=== PATIENT | female | born 1960 | race Caucasian/White ===

== ENCOUNTER → 2017-04-23 | Outpatient (CLI) | payer OTHER ==
[~2017-04-23] MED LIST: COUMADIN PO; PERCOCET5/325 PO
--- NOTE | ~2017-04-23 | CT2 ---
[facility] A Service of [facility] & [facility] RADIOLOGY TEXT RESULTS PATIENT: ANTONELLA WAGNER LOCATION: [facility] : 64 UNIT #: [id number] AGE: [address]: Prosper Devine MD SEX: F ORDER DR: [id number] [address] [address] [id number] O MR#: [id number] Acc #: [id number] NAME: ANTONELLA WAGNER : 1960 SEX: F STUDY DATE/TIME: 04/23/2017 12:29 UNIT: [facility] ROOM: STUDY DESCRIPTION: CT Abd and Pelv W Cont Attending Physician: Prosper Devine M.D. Referring Physician: Prosper Devine M.D. Ordering Physician: Prosper Devine M.D. Primary Care Physician: Prosper Devine M.D. MEDICAL IMAGING REPORT This report is preliminary unless electronic signature is present. EXAM CT abdomen and pelvis with contrast, 04/23/2017. HISTORY Left lower quadrant abdominal pain with diarrhea and nausea for 2 months. Previous appendectomy and colon resection. COMPARISON CT abdomen and pelvis with contrast, 03/14/2013. PROCEDURE 5-mm axial images through the abdomen and pelvis after intravenous and enteric contrast administration. Sagittal and coronal reformatted images were obtained. This CT exam was performed with one or more of the following radiation dose reduction techniques: automatic exposure control, adjustment of mA and/or kV according to patient size, and iterative reconstruction. FINDINGS ABDOMEN: Study is attenuated secondary to patient body habitus. Lung bases are clear. The liver, gallbladder, spleen, pancreas, adrenals and right kidney are unremarkable. A cyst in the left mid kidney measures 2 cm. The liver, gallbladder, spleen, pancreas, adrenals and right kidney are normal. 2 midline ventral hernias are demonstrated, 1 just above the level of the umbilicus with the hernia sac measuring 3.2 x 2.3 x 2.8 cm. The second hernia is seen below the umbilicus with a hernia sac measuring 3 x 6 x 5 cm. Each of these hernias contain nonobstructed small bowel loops which do not appear thickened or inflamed. [facility]. [facility] A Service of [facility] & [facility] RADIOLOGY TEXT RESULTS PATIENT: ANTONELLA WAGNER LOCATION: [facility] : 64 UNIT #: [id number] AGE: [address]: Prosper Devine MD SEX: F ORDER DR: PELVIS: There are surgical changes of the sigmoid colon. Left ovarian cyst measures 3 cm and appears unchanged since 03/14/2013. Uterus and rectum are normal. No pelvic free fluid is identified. Degenerative disc changes with vacuum disc phenomenon at L2-3, L3-4, L4-5. Advanced facet arthropathy bilaterally at L3-4. No acute osseous abnormalities. IMPRESSION 1. There are 2 ventral midline abdominal hernias containing non- incarcerated nonobstructed small bowel which have developed since the 03/14/2013 examination. 2. No acute findings within the abdomen or pelvis. 3. Appendectomy. Surgical changes of the sigmoid colon. 4. Stable 3-cm left ovarian cyst since 03/14/2013. 5. Left renal cyst. Dictated by... Sasha Barnes M.D. THIS IS AN ELECTRONICALLY VERIFIED REPORT Sasha Barnes M.D. at 04/24/2017 8:54 AM BHARGAV/sachin TD: 04/23/2017 18:24 JOB #: [id number] MEDICAL IMAGING REPORT Page 1 of 1
[2017-04-23 11:10] LABS: POC - CREATININE 1.12 mg/dL (0.44-1.03)
== END | disposition home or self-care (01) ==
LOC: SCT 10:52
PROVIDERS: Family Medicine
DX: R10.32 Left lower quadrant pain (principal); K43.9 Ventral hernia without obstruction or gangrene; N83.202 Unspecified ovarian cyst, left side; N28.1 Cyst of kidney, acquired; Z90.49 Acquired absence of other specified parts of digestive tract
CPT/HCPCS: 74177; 82565; Q9967